=== PATIENT | male | born 1955 | race Caucasian/White ===

== ENCOUNTER 2022-06-06 18:34 | Observation (INO) ==
[2022-06-06] MEDS ORDERED: EPINEPHrine INJ 1 MG/ML AMP IM STA (18:40)
--- NOTE | 2022-06-06 18:43 | Emergency Department Note ---
Impression & Plan Angio-edema, Dyspnea ADMIT ED Provider Note HPI: The patient is a 66-year-old male who presents to the emergency department via EMS over concern for angioedema of the face. Patient states that approximately 2 hours prior to arrival he contacted EMS as he developed some swelling in the left side of his lips and mouth as well as his orbits inferiorly. Patient states he does have a history of one similar reaction that was to a certain type of plant. Patient did recently start burning wood at a wood-burning stove in his home. Patient was given intramuscular epinephrine, IV Solu-Medrol, IV Benadryl via EMS prior to arrival to the ED. Per the EMS provider, patient's angioedema improved by about 50% over the past hour since he received the intramuscular epinephrine. On arrival here to the ED the patient is stable on nasal cannula oxygen, there is appreciable angioedema that is mild to moderate in nature in the bilateral orbits as well as the left side of the lips/mouth. Patient states his work of breathing is greatly improved from previous. ROS: -HEENT: Angioedema *10 point review systems was conducted and is otherwise negative unless stated above *Outpatient medications and allergy history reviewed PE: General: Alert HEENT: Normocephalic, trachea midline, moderate angioedema noted in the inferior orbits bilaterally, there is also moderate angioedema noted of the lower lip and left upper lip, no angioedema of the tongue, posterior pharynx shows some very mild angioedema in the area of the right upper pharynx, uvula is midline, airway is otherwise largely patent Eyes: Extraocular eye movement is intact, no scleral erythema Pulmonary: Clear to auscultation bilaterally, no wheezing Cardio: Regular rate and rhythm GI: Abdomen is soft, nontender : No suprapubic tenderness MSK: No evidence of trauma or malformation of the extremities, no edema Skin: No evidence of rash Neuro: Alert, no focal deficits Psychiatric: Cooperative media monitor: - An order was placed for continuous cardiac monitoring - Patient was noted to be in sinus rhythm with a rate of 70 Interventions provided in ED: -Intramuscular epinephrine, IV Pepcid, cooled aerosol treatment Medical Decision Making: Patient presented to the emergency department with a chief complaint of facial swelling and a sensation of shortness of breath, per EMS he was given intramuscular epinephrine, IV Solu-Medrol, and IV Benadryl in the field. This did result in approximately 50% improvement in the angioedema of his face and mouth according to the EMS provider that was on scene. Patient is stable on nasal cannula oxygen on arrival, he was administered a c ooled aerosol treatment by respiratory therapy, he was given an additional dose of intramuscular epinephrine on my assessment as he still did have some angioedema and his last dose was approximately 1 hour prior to arrival. Patient was maintained on laboratory monitor, he was hypertensive but otherwise in no acute distress. On my reassessment following these interventions sometime later the patient is stable on room air however his angioedema is still present. He states that his work of breathing is improved. Given the patient's ongoing angioedema, he will be admitted to the medicine service for monitoring overnight. I did discuss the case with the on-call midlevel provider for the ICU tonight, Teo eMehan, and he will staffed the case with the on-call greenskeeper laborer. Patient will be admitted to the ICU following my discussion with the on-call hospitalist, Dr. Juan. Patient was i n agreement for admission and he was admitted in improved condition. * CRITICAL CARE TIME: ( 45 ) minutes -Stabilization of angioedema with shortness of breath requiring multiple doses of intramuscular epinephrine, time spent at the bedside, discussion with other physicians and healthcare providers regarding disposition, frequent reassessments for any worsening of potential angioedema/anaphylaxis and arrangement of admission to the ICU for observation and airway monitoring overnight. Diagnosis: 1. Facial and pharyngeal angioedema, acute 2. Shortness of breath, transient Disposition: Admission Justin Liang DO Emergency Medicine Past Med/Surg History Medical History (Updated 06/06/22 @ 23:11 by Justin Liang DO) Angioedema Asthma Elevated blood pressure reading Social History Smoking Status: Never smoker Preferred Language: Turkish Feels Safe at Home: Yes Allergies Allergies Allergy/AdvReac Type Severity Reaction Status Date / Time No Known Allergies Allergy Verified 06/06/22 19:44 Home Meds Home Medications Medication Instructions Recorded Confirmed Multiple Vitamins Suppliments 1 dose PO DAILY 06/06/22 06/06/22 albuterol sulfate 90 mcg/actuation 2 puff inhalation DIRECTED PRN 06/06/22 06/06/22 aerosol inhaler Shortness Of Breath Results & Data (ED) Vital Signs Vital Signs - 24 hr 06/06/22 18:34 06/06/22 18:34 06/06/22 19:10 Temperature 36.6 C Temperature Source Oral Pulse Rate 105 H Pulse Rate [Apical] 94 H Pulse Rate from SpO2 Sensor Respiratory Rate 16 18 Respiratory Effort / Characteristics Non-Labored Non-Labored Spontaneous Respiratory Depth Normal Normal Respiratory Pattern Regular Blood Pressure 210/118 H Blood Pressure [Left Arm] Blood Pressure Mean 148 Blood Pressure Mean [Left Arm] Pulse Oximetry 99 99 98 Oxygen Delivery Method Nasal Cannula Nasal Cannula Aerosol Mask Oxygen Flow Rate 5 5 5 Fraction of Inspired Oxygen 28 SaO2/FiO2 Ratio 350 Sepsis Recent Fever Within 48 Hours No Sepsis New/Unexplained Change in Mental Status N/A Sepsis Action Taken by Nursing No Action Required 06/06/22 19:30 06/06/22 20:01 06/06/22 20:30 Temperature Temperature Source Pulse Rate 88 Pulse Rate [Apical] 86 65 Pulse Rate from SpO2 Sensor 88 Respiratory Rate 16 16 17 Respiratory Effort / Characteristics Non-Labored Spontaneous Non-Labored Spontaneous Respiratory Depth Normal Normal Respiratory Pattern Blood Pressure 199/99 H Blood Pressure [Left Arm] 204/109 H 200/98 H Blood Pressure Mean 132 Blood Pressure Mean [Left Arm] 140 132 Pulse Oximetry 98 100 98 Oxygen Delivery Method Aerosol Mask Aerosol Mask Room Air Oxygen Flow Rate 5 5 Fraction of Inspired Oxygen 28 28 SaO2/FiO2 Ratio 350 357 Sepsis Recent Fever Within 48 Hours Sepsis New/Unexplained Change in Mental Status Sepsis Action Taken by Nursing 06/06/22 21:30 Temperature Temperature Source Pulse Rate 92 H Pulse Rate [Apical] Pulse Rate from SpO2 Sensor Respiratory Rate 24 Respiratory Effort / Characteristics Respiratory Depth Respiratory Pattern Blood Pressure 214/121 H Blood Pressure [Left Arm] Blood Pressure Mean 152 Blood Pressure Mean [Left Arm] Pulse Oximetry 97 Oxygen Delivery Method Room Air Oxygen Flow Rate Fraction of Inspired Oxygen SaO2/FiO2 Ratio Sepsis Recent Fever Within 48 Hours Sepsis New/Unexplained Change in Mental Status Sepsis Action Taken by Nursing Laboratory Data Result diagrams: 06/06/22 18:45 Lab Results 06/06/22 06/06/22 Range/Units 18:45 20:45 WBC 6.00 (4.8-10.8) K/ul RBC 5.13 (4.63-6.08) M/uL Hgb 15.8 (14.0-18.0) g/dl Hct 46.1 (40.1-51.0) % MCV 89.9 (80.0-100.0) fL MCH 30.8 (25.0-34.0) pg MCHC 34.3 (32.0-36.0) g/dL RDW Std Deviation 43.1 (36.4-46.3) fL RDW Coeff of Cindi 13.1 (11.5-14.5) % Plt Count 241 (130-400) K/uL MPV 9.1 L (9.4-12.4) fL Immature Gran % (Auto) 0.2 % Neut % (Auto) 71.9 % Lymph % (Auto) 13.2 % Candler % (Auto) 11.2 % Eos % (Auto) 2.5 % Baso % (Auto) 1.0 % Neut # (Auto) 4.32 (1.4-6.5) K/uL Lymph # (Auto) 0.79 L (1.2-3.4) K/uL Candler # (Auto) 0.67 (0.24-0.82) K/uL Eos # (Auto) 0.15 (0-0.50) K/uL Baso # (Auto) 0.06 (0-0.2) K/uL Immature Gran # (Auto) 0.01 (0.00-0.02) K/uL SARS-CoV-2, RNA, NAAT NEGATIVE (NEGATIVE) Administered Medications Discontinued Medications Epinephrine HCl (Epinephrine Inj 1 Mg/Ml Amp) 0.3 mg IM NOW STA Stop: 06/06/22 18:41 Last Admin: 06/06/22 19:01 Dose: 0.3 mg Documented By: DANNIE Famotidine (Pepcid 20mg Iv Push) 20 mg in 5 mls @ 2.5 mls/min IV NOW STA Stop: 06/06/22 20:48 Last Admin: 06/06/22 21:24 Dose: 2.5 mls/min Documented By: ZO Discharge Plan Visit Data Chief Complaint: Shortness of Breath/Dyspnea Stated Complaint: SOB ED Provider: Justin Liang Discharge Problem: Angio-edema, Dyspnea Patient Disposition: Admitted As Inpatient Discharge Instructions Interventions: ED Discharge Assessment Last Done: 06/06/22 22:15
[2022-06-06 18:57] LABS: Basophils # (auto) 0.06 K/uL (0-0.2); Eosinophils # (auto) 0.15 K/uL (0-0.50); Eosinophils % (auto) 2.5 %; Hematocrit (blood only) 46.1 % (40.1-51.0); Hemoglobin 15.8 g/dl (14.0-18.0); Immature Granulocytes # (auto) 0.01 K/uL (0.00-0.02); Immature Granulocytes % (auto) 0.2 %; Lymphocytes # (auto) 0.79 K/uL (1.2-3.4); Lymphocytes % (auto) 13.2 %; Mean Corpuscular Hemoglobin 30.8 pg (25.0-34.0); Mean Corpuscular Hgb Conc 34.3 g/dL (32.0-36.0); Mean Corpuscular Volume 89.9 fL (80.0-100.0); Mean Platelet Volume 9.1 fL (9.4-12.4); Monocytes # (auto) 0.67 K/uL (0.24-0.82); Monocytes % (auto) 11.2 %; Neutrophils # (auto) 4.32 K/uL (1.4-6.5); Neutrophils % (auto) 71.9 %; Platelet Count 241 K/uL (130-400); RDW Coefficient of Variation 13.1 % (11.5-14.5); RDW Standard Deviation 43.1 fL (36.4-46.3); Red Blood Count 5.13 M/uL (4.63-6.08)
[2022-06-06] MEDS ORDERED: FAMOTIDINE 20MG IV PUSH 20 MG/5 ML SYR IV STA (20:47)
--- NOTE | 2022-06-06 22:00 | Critical Care Consultation ---
Date of Consultation June 06, 2022 Assessment & Plan (1) Angioedema: (2) Elevated blood pressure reading: (3) Asthma: Plan Reason Critically Ill: [] Neuro - No acute needs CAM ICU: Negative NO focal deficits Cardiac - Elevated blood pressure reading, - patient does not follow with PCP and is not on any medications at home- he is currently asymptomatic and reports that frequently at home his BP is elevated to > 200 - Will defer treatment of this to medicine and PCP- unless symptomatic or organ dysfunction occurs - EKG on arrival for baseline - Will avoid B2 B1 blockers with his asthma history and until pulmonary wheezing and angioedema is improved - UA to evaluate protein level Respiratory - Angioedema, Asthma - For his Angioedema- symptom onset and response to therapy makes this most consistent with Histamine mediated angioedema - Patient should follow up with designer writer following admission - For completeness iveth and koley need for BP control- will send C1 inhibitor function/antigen, tryptase level, and C1q - Continue with steroid, ERAN, Benadryl PRN, Famotidine - IF his symptoms worsen and would need another dose of epinephrine or refractory would transition to IV epinephrine with rapid wean when symptoms improve as less residual effects on his elevated BP - Intubation as last resort - reported history of asthma but no PFTs to review - continue his ERAN can use nebulizer if symptoms return/worsen- follow GI - No acute needs RENAL/LYTES - NO acute needs - BMP in morning and as above UA to evaluate protien level - No acute needs ENDO - NO acute needs ICU hyperglycemia protocol HEME - NO acute needs ID - NO acute needs or evidence of infection or epiglottis noted on lateral soft tissue LINES/IV ACCESS - PIV Continue use of these lines Continue use of thes lines DVT PROPHYLAXIS SCDS, ambulation, DISPO: ICU overnight follow symptoms I have personally spent 35 minutes of critical care time in the direct management of this patient. This is a life/limb threatening event. This includes time spent evaluating patient, direct bedside care, chart review, placing orders, interpretation of diagnostic studies, discussion with consultants, benjie bae, and family members, as well as other required patient management activities. This time is exclusive of all separately billable procedures, and separate from and in addition to any other critical care service time. Thank you for allowing us to participate in the care of this patient. Please refer to my attending physician's documentation for any further recommendations. History of Present Illness Reason for Consultation: angioedema requiring 2 doses of IM epinepherine Requesting Physician: Drake Attending Physician: Drake History of Present Illness 66 YOM with no PCP, endorses only history of Asthma for which he has an albuterol inhaler at home. he notes that he is routinely hypertensive at home with BP greater than 200. He is not on any medications for this and endorses that he notes it increases with his albuterol inhaler. Patient comes to the hospital today after calling EMS for feeling his throat closing and tongue swelling. Patient states that this occurred this afternoon while he was lying on the couch. He reports that it started with a tightness feeling in his chest, this progressed to mouth and lip numbness and swelling that included his tongue and back of his throat, this progressed until EMS picked him up with reportedly facial/orbital edema as well. He used his abluterol inhaler approx 6 times and also tried some inahled essential peppermint tea oils, which he states normally helps. He reports that he ate a roast this afternoon with some seasonings as well as mushrooms, also reports fireplace/wood furnace at home which he has been burning wood in, but this is nothing out of the abnormal. Patient has remote hisotry of eating something back in 2019 with same symptoms and reports that at that time was some type of clam chowder. Overall the patient required 2 doses of IM epinephrine with rebound in between EMS dosing and EMD dosing. He received steroids and benadryl en route via EMS. Famotidine was added in EMD and soft tissue Xray was performed in EMD. Patient was evaluated in EMD with staff attending. 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 Patient will be observed in ICU for airway precautions and monitoring for return of symptoms. COVID: NEGATIVE FULL CODE Allergies Allergy/AdvReac Type Severity Reaction Status Date / Time No Known Allergies Allergy Verified 06/06/22 19:44 Home Medications Medication Instructions Recorded Confirmed Type Multiple Vitamins Suppliments 1 dose PO DAILY 06/06/22 06/06/22 History albuterol sulfate 90 mcg/actuation 2 puff inhalation DIRECTED PRN 06/06/22 06/06/22 History aerosol inhaler Shortness Of Breath Patient History Medical History (Updated 06/06/22 @ 22:11 by ELLEN Mendoza) Angioedema Asthma Elevated blood pressure reading Social History Smoking Status: Never smoker Preferred Language: Croatian Feels Safe at Home: Yes Review of Systems Review of Systems: REVIEW OF SYSTEMS: Constitutional: No fever, sweats or chills Eyes: (+) orbital swelling- resolved, No diplopia, no worsening or blurred vision ENT: (+) lip, tounge, throat swelling, normal hearing, no trouble swallowing Respiratory: (+) asthma, No cough, sputum, dyspnea at rest or on exertion Cardiovascular: No chest pain, tightness or palpitations Abdomen: No pain, nausea, vomiting, diarrhea or constipation Musculoskeletal: No joint pain, calf pain, swelling Neurologic: No weakness, numbness/tingling, or balance problems Psychiatric: No anxiety or depression Skin: No rash or itch Physical Exam Physical Exam: PHYSICAL EXAM: General: awake, alert, no apparent distress Head: Normocephalic, atraumatic ENT: PERRL, EOMI, no pharyngeal exudate, tongue swollen, tonsils and adenoids normal and uvula normal in appearance, no erythema or pustules, mucous membranes moist Neuro: AAO x 3, speech clear and appropriate, strength intact bilaterally 5/5, sensation intact and equal all extremities and dermatomes, no pronator drift Chest: equal rise and fall of the chest, no accessory muscle use, no heaves or thrills, Clear to auscultation, without egophany, on room air, Cardiac: Regular rate and rhythm, telemetry reviewed, skin warm dry, cap refill <3 seconds, peripheral pulses +2 no JVD, no murmur, trace bilateral lower extremity edema GI: NABS x 4 quadrants, soft, nontender to palpation, no rebound, guarding or tenderness : Spontaneously voiding, no pain, no CVA tenderness, Extremities: Normal inspection, no peripheral edema or erythema, calfs nontender to palpation Psych: Normal mood and affect Skin: no rash or erythema Results & Data Results & Data ([facility]) Vital Signs (Past 12 Hours) Vital Signs Temp Pulse Pulse Resp BP BP Pulse Ox 06/06/22 21:30 92 H 24 214/121 H 97 06/06/22 20:30 88 17 199/99 H 98 06/06/22 20:01 65 16 200/98 H 100 06/06/22 19:30 86 16 204/109 H 98 06/06/22 19:10 94 H 18 98 06/06/22 18:34 99 06/06/22 18:34 36.6 C 105 H 16 210/118 H 99 O2 Del Method O2 Flow Rate FiO2 06/06/22 21:30 Room Air 06/06/22 20:30 Room Air 06/06/22 20:01 Aerosol Mask 5 28 06/06/22 19:30 Aerosol Mask 5 28 06/06/22 19:10 Aerosol Mask 5 28 06/06/22 18:34 Nasal Cannula 5 06/06/22 18:34 Nasal Cannula 5 Laboratory Results Abnormal lab results 06/06/22 Range/Units 18:45 MPV 9.1 L (9.4-12.4) fL Lymph # (Auto) 0.79 L (1.2-3.4) K/uL Medications Administered Home Medications Multiple Vitamins Suppliments 1 dose PO DAILY 06/06/22 [History Confirmed 06/06/22] albuterol sulfate 90 mcg/actuation aerosol inhaler 2 puff inhalation DIRECTED PRN Shortness Of Breath 06/06/22 [History Confirmed 06/06/22] Discontinued Medications Epinephrine HCl (Epinephrine Inj 1 Mg/Ml Amp) 0.3 mg IM NOW STA Stop: 06/06/22 18:41 Last Admin: 06/06/22 19:01 Dose: 0.3 mg Documented By: DANNIE Famotidine (Pepcid 20mg Iv Push) 20 mg in 5 mls @ 2.5 mls/min IV NOW STA Stop: 06/06/22 20:48 Last Admin: 06/06/22 21:24 Dose: 2.5 mls/min Documented By: ZO ECG Additional Comments: pending on admission Coding Level of Care Code Critical Care 1st 30-74 mins Diagnoses Angioedema T78.3XXA Elevated blood pressure reading R03.0 Asthma J45.909
[2022-06-06] MEDS ORDERED: diphenhydrAMINE 50 MG/ML VIAL IV PRN (22:52)
[2022-06-06] MEDS ORDERED: ALBUTEROL HFA 8 GM INHALER INH PRN (22:52)
[2022-06-06] MEDS ORDERED: ALBUTEROL 0.083% NEBU SOLN 3 ML VIAL NEB PRN (22:52)
--- NOTE | 2022-06-06 23:11 | History and Physical Report ---
DATE OF ADMISSION: 06/06/2022. CHIEF COMPLAINT: Angioedema, shortness of breath. HISTORY OF PRESENT ILLNESS: A 66-year-old male with past medical history significant for asthma, uses inhaler as needed, history of hypertension, currently using herbal medicines, does not go to doctors often, presents with allergic symptoms, angioedema and shortness of breath. The patient says around 4:00 to 5:00 p.m., he felt short of breath and he took his inhaler, then he felt swelling of his lips and also felt like his throat is closing, felt short of breath and called 911. He was given IM epinephrine, IV Solu-Medrol, and IV Benadryl by EMS and seems improved by 50% In the ER, the patient was stable on nasal cannula oxygen and there was still [id number] swelling in his orbits and left side of his lips and mouth. He was given another dose of epinephrine and also Pepcid. Currently, resting comfortably, saturating okay on room air. Blood pressure high, 214/121. The patient still feels slight swelling in his throat but not feeling short of breath, but still feels some swelling in his lips and throat and says has mild swelling on the right side of face. The patient was seen in the ER in 07/2019 complaining of shortness of breath. At that time when it happened, he began wheezing after eating food in the evening. The seems to had dairy allergy and was treated in the ER and discharged. The patient says also in his 40s, he was allergic to grass and some kind of trees, these are not in [place]. In the last few days, he was hunting. It also seems that he is burning wood stove in his home recently. The patient currently denies any headache. No blurred visions, no earache, no runny nose, no sore throat, no cough, no fevers, no chest pain. Currently, no shortness of breath, no nausea, no vomiting, no abdominal pain. Normal bowel and bladder movements. No rash, no swelling in the legs seen. ALLERGIES: No known drug allergies. PAST MEDICAL HISTORY: As mentioned above. PAST SURGICAL HISTORY: The patient had hernia surgery and vasectomy. MEDICATIONS: Albuterol p.r.n., multivitamins. FAMILY HISTORY: Significant for father had stroke and hypertension; mother had stroke and hypertension. SOCIAL HISTORY: Denies any smoking, no alcohol, no drug use. REVIEW OF SYSTEMS: As per HPI. Rest of the review of systems is negative. PHYSICAL EXAMINATION: GENERAL: The patient is of moderate build, not in acute distress. VITAL SIGNS: Temperature 36.6, pulse 92, respiratory rate 24, blood pressure 214/121, oxygen 97% on room air. HEENT: Pupils equal, round and reactive to light. Mild right facial swelling. Minimal lip swelling, minimal uvula swelling. NECK: No JVD. No neck masses. CARDIOVASCULAR: S1 and S2 heard. Regular rate and rhythm. No murmur, no gallop. RESPIRATORY SYSTEM: Normal AP diameter. No accessory muscle use. No wheezing, no crackles. ABDOMEN: Soft, bowel sounds present, nontender, no distention. CENTRAL NERVOUS SYSTEM: Cranial nerves II-XII grossly intact, nonfocal. EXTREMITIES: No edema, no erythema. LABORATORY DATA: WBC 6, hemoglobin 15.8, hematocrit 46.1, platelets 241. SARS-CoV-2 rapid test negative. Soft tissue neck x-ray results are pending. ASSESSMENT AND PLAN: This 66-year-old male presents with angioedema and shortness of breath. 1. Angioedema, shortness of breath, swelling of the lips ,uvula and right facial swelling. Received a dopse of IM epinephrine, Solu-Medrol and Benadryl by the emergency medical services, and in the Emergency Room, he received another shot of IM epinephrine and Pepcid. Symptoms seem to have much improved. We are going to observe in the intensive care unit. We will give a dose of Claritin. Continue with IV Pepcid 20 b.i.d., IV Benadryl p.r.n. I will start with prednisone 60 mg daily from the morning. Closely monitor. Needs close followup with allergy/immunology. 2. Hypertensive urgency. The patient says his blood pressure when he checked at home, systolic blood pressures sometimes 210, sometimes 190, 170. He is taking herbal medications. The patient may need blood pressure medications on discharge and needs a close followup with primary care physician. We will monitor in the hospital. 3. Deep venous thrombosis prophylaxis. Sequential compression devices for now. DISPOSITION: Closely monitor in the ICU. Level 1, full code. Expect to discharge home and follow with family doctor and allergy and immunology. Job ID: [id number] [facility]
[2022-06-06] MEDS ORDERED: CETIRIZINE HCL 10 MG TABLET PO ONE (23:15)
[2022-06-06] MEDS: SODIUM CHLORIDE 0.9% 1000ML 1,000 ML IV SCH (23:21)
[2022-06-06] MEDS: FAMOTIDINE 20 MG in SYRINGE 3 ML IV SCH (23:22)
[2022-06-06 23:32] LABS: BUN Creatinine Ratio 15.2 (10-20); Calcium 8.9 mg/dl (8.5-10.1); Creatinine Clr Calc Pharmacy 53.3 ml/min; Est GFR (African American) 64.7 ml/min; Est GFR (Non-African American) 55.8 ml/min; Potassium 3.5 mmol/L (3.5-5.1)
[2022-06-07 05:17] LABS: Hematocrit (blood only) 42.4 % (40.1-51.0); Hemoglobin 14.2 g/dl (14.0-18.0); Mean Corpuscular Hemoglobin 30.3 pg (25.0-34.0); Mean Corpuscular Hgb Conc 33.5 g/dL (32.0-36.0); Mean Corpuscular Volume 90.6 fL (80.0-100.0); Mean Platelet Volume 9.6 fL (9.4-12.4); Platelet Count 243 K/uL (130-400); RDW Coefficient of Variation 13.2 % (11.5-14.5); RDW Standard Deviation 43.6 fL (36.4-46.3); Red Blood Count 4.68 M/uL (4.63-6.08); White Blood Count 6.24 K/ul (4.8-10.8)
[2022-06-07 05:56] LABS: Albumin Level 4.3 gm/dl (3.4-5.0); Bilirubin Direct 0.1 mg/dl (0-0.2); Bilirubin,Total 0.4 mg/dl (0.2-1.0); Magnesium 2.1 mg/dl (1.7-2.4); Total Protein 6.5 gm/dl (6.0-8.3)
[2022-06-07 05:59] LABS: Basophils # (auto) 0.01 K/uL (0-0.2); Basophils % (auto) 0.2 %; Immature Granulocytes # (auto) 0.01 K/uL (0.00-0.02); Immature Granulocytes % (auto) 0.2 %; Lymphocytes # (auto) 0.24 K/uL (1.2-3.4); Lymphocytes % (auto) 3.8 %; Monocytes # (auto) 0.15 K/uL (0.24-0.82); Monocytes % (auto) 2.4 %; Neutrophils # (auto) 5.83 K/uL (1.4-6.5); Neutrophils % (auto) 93.4 %
[2022-06-07 06:52] LABS: Appearance Urine Clear (Clear); Bacteria Urine Automated Negative (Negative); Bilirubin Urine Negative (Negative); Blood Urine Negative (Negative); Cast Urine Automated 0 /lpf (0-5); Color Urine Yellow; Epithelial Cell Urine Auto 0-5 /lpf (0-5); Glucose Urine UA Negative (Negative); Ketones Urine Trace (Negative); Leukocyte Esterase Urine Negative (Negative); Nitrite Urine Negative (Negative); Protein Urine 1+ (Negative); RBC Urine Automated 0-4 /hpf (0-4); Specific Gravity Urine 1.028 (1.000-1.030); Urobilinogen Urine Negative (Negative); pH Urine 5.5 (4.5-7.5)
--- NOTE | 2022-06-07 08:16 | XRay Report ---
XR soft tissue neck CLINICAL HISTORY: Neck edema. COMPARISON STUDY: None. FINDINGS: The contours of the hypopharynx are within normal limits. The prevertebral soft tissues and epiglottis are normal in thickness. No radiopaque foreign bodies. Moderate degenerative disc disease at C6-C7. The trachea is midline and patent. The lung apices are clear. No radiopaque foreign bodies . IMPRESSION: No significant abnormality within the neck by conventional radiographic technique. ACT 112: Negative or not required by law. Electronically signed by: Chencho Medina M.D. 06/07/2022 8:14 AM
--- NOTE | 2022-06-07 08:59 | Electrocardiogram Report ---
Test Reason : Blood Pressure : / mmHG Vent. Rate : 062 BPM Atrial Rate : 062 BPM P-R Int : 154 ms QRS Dur : 080 ms QT Int : 406 ms P-R-T Axes : 059 012 029 degrees QTc Int : 412 ms Normal sinus rhythm Diffuse Minor Nonspecific T wave abnormality Abnormal ECG When compared with ECG of 22-AUG-2019 19:25, Vent. rate has decreased BY 39 BPM Nonspecific T wave abnormality now evident in Lateral leads Confirmed by Rajendra Shin ([id number]) on 06/07/2022 8:59:16 AM Referred By: REFERRED SELF Confirmed By:Rajendra Shin
[2022-06-07] MEDS: ICU Protocol for HYPERglycemia SCH ×2 (09:04→11:21)
[2022-06-07] MEDS: FAMOTIDINE 20 MG in SYRINGE 3 ML IV SCH (09:04)
[2022-06-07] MEDS: predniSONE 20 MG TAB PO SCH (09:04)
[2022-06-07] MEDS: SODIUM CHLORIDE 0.9% 1000ML 1,000 ML IV SCH (09:05)
--- NOTE | 2022-06-07 09:30 | Critical Care Progress Note ---
Date of Service June 07, 2022 Assessment & Plan (1) Angio-edema: Plan: Reason Critically Ill: 66yo MAle with PMH HTN admitted for angioedema Neuro - No acute needs CAM ICU: Negative NO focal deficits Cardiac -Hypertension - patient does not follow with PCP and is not on any medications at home- he is currently asymptomatic and reports that frequently at home his BP is elevated to > 200 - Will defer treatment of this to medicine and PCP- unless symptomatic or organ dysfunction occurs - EKG on arrival for baseline - Will avoid B2 B1 blockers with his asthma history - UA +1 protein - will start patient on 5mg amlodipine daily Respiratory - Angioedema - For his Angioedema- symptom onset and response to therapy makes this most consistent with Histamine mediated angioedema - Patient should follow up with public health nutritionist following admission - C1 inhibitor function/antigen, tryptase level, and C1q pending - Continue with steroid, ERAN, Benadryl PRN, Famotidine - last epinephrine administration >12hr ago Asthma - reported history of asthma but no PFTs to review - continue his ERAN can use nebulizer if symptoms return/worsen- follow GI - No acute needs RENAL/LYTES - NO acute needs - No acute needs ENDO - NO acute needs ICU hyperglycemia protocol HEME - NO acute needs ID - NO acute needs or evidence of infection or epiglottis noted on lateral soft tissue LINES/IV ACCESS - PIV Continue use of these lines Continue use of thes lines DVT PROPHYLAXIS SCDS, ambulation, DISPO: ICU overnight follow symptoms Thank you for allowing us to participate in the care of this patient. Please refer to my attending physician's documentation for any further recommendations. Patient may be downgraded from ICU at this time. (2) Dyspnea: (3) Angioedema: (4) Elevated blood pressure reading: (5) Asthma: Admission and Anticipated Discharge Date Admission Date: June 06, 2022 Supervising Physician Co-Signing Physician Notes Dr. Ibrahim was resident physician during care of patient. I separately evaluated patient for jiménez portions of the history and the exam. I was present during the critical portion of medical decision making, and I discussed the case with the resident. I generally agree with the findings and plan. Histamine mediated angioedema. Last administered epinephrine subcu greater than 12 hours ago. Will continue with Pepcid Benadryl and prednisone for today. Persistently elevated blood pressures, this is chronic no need for emergent/urgent intervention given no evidence of end organ damage at this time. We will start 5 mg amlodipine given multiple allergies questionable angioedema. Stable for downgrade out of ICU. Subjective 66yo Male seen at bedside, calm comfortable cooperative. Denies any SOB today, swelling in mouth and lips much improved mild swelling in back of throat, puffiness of right lip and eye. He states he is unable to determine what may have triggered his angioedema, has new house new heater new coffee, only medication is inhaler which he uses frequently, likes using vitamins and essential oils to treat his HTN without great success. Review of Systems Review of Systems: Negative fever chills Negative headache dizziness Negative chest pain palpitations SOB Negative nausea vomitting diarrhea constipation Negative numbness tingling rash swelling Physical Exam Constitutional: WD/WN, vitals as above Eyes: PERRL, conjunctivae normal, anicteric sclerae ENMT: external ear and nose normal, oropharynx normal Neck: trachea midline, no thyromegaly Respiratory: normal respiratory effort, lungs clear to auscultation Cardiovascular: Rate/Rhythm: regular rate and regular rhythm Gastrointestinal (Abdomen): Inspection/Auscultation: abdomen normal to inspection Percussion/Palpation: abdomen soft; abdomen nontender Skin: no rashes, warm and dry Results & Data Results & [facility] ([facility]) Vital Signs (Past 12 Hours) Vital Signs Temp Pulse Pulse Resp BP BP Pulse Ox 06/07/22 05:30 60 14 95 06/07/22 05:01 170/105 H 06/07/22 05:01 93 H 15 95 06/07/22 05:00 64 22 94 06/07/22 04:30 36.6 C 72 19 95 06/07/22 04:00 60 12 94 06/07/22 04:00 137/84 06/07/22 03:30 62 16 96 06/07/22 03:00 63 14 94 06/07/22 03:00 165/89 H 06/07/22 02:30 64 28 H 95 06/07/22 02:00 66 16 96 06/07/22 01:30 59 L 19 94 06/07/22 01:00 79 15 95 06/07/22 01:00 146/79 H 06/07/22 00:30 59 L 16 95 06/07/22 00:00 61 14 95 06/07/22 00:00 150/84 H 06/06/22 23:30 36.7 C 60 25 H 165/96 H 96 06/06/22 23:00 65 17 96 06/06/22 22:42 75 19 95 06/06/22 22:52 77 06/06/22 23:01 36.7 C 68 16 166/81 H 96 06/06/22 22:00 69 18 193/101 H 94 O2 Del Method 06/07/22 05:30 06/07/22 05:01 06/07/22 05:01 06/07/22 05:00 06/07/22 04:30 06/07/22 04:00 06/07/22 04:00 06/07/22 03:30 06/07/22 03:00 06/07/22 03:00 06/07/22 02:30 06/07/22 02:00 06/07/22 01:30 06/07/22 01:00 06/07/22 01:00 06/07/22 00:30 06/07/22 00:00 06/07/22 00:00 06/06/22 23:30 Room Air 06/06/22 23:00 06/06/22 22:42 06/06/22 22:52 06/06/22 23:01 Room Air 06/06/22 22:00 Room Air Resident Activity Tracking Resident Involvement: Resident Care Provided Care Provided: Adult Hospital Medicine (1) Angio-edema Encounter type: initial encounter Qualified Code(s): T78.3XXA - Angioneurotic edema, initial encounter
[2022-06-07] MEDS: amLODIPine BESYLATE 5 MG TAB PO SCH ×2 (11:21→13:56)
--- NOTE | 2022-06-07 11:31 | Hospitalist Progress Note ---
Date of Service June 07, 2022 Assessment & Plan (1) Angio-edema: Plan: Patient is a 66 yr male who presents with angioedema and shortness of breath. Angioedema Unclear etiology --Neck X ray:No significant abnormality within the neck by conventional radiographic technique. --C1 inhibitor function/antigen, tryptase level, and C1q pending -- Received epinephrine, Zyrtec Continue prednisone, famotidine, Benadryl PRN Advance diet as tolerated Visit maintenance person help Downgrade out of ICU Needs follow-up with allergy/Immunology as outpatient Hypertensive urgency Uses natural remedies for blood pressure control as per patient Reluctant to be started on any antihypertensives Explained the risks and complications involved with uncontrolled blood pressure Needs close follow-up with PCP upon discharge Monitor BP Asthma Continue inhalers as needed DVT Px: SCDs for now CODE STATUS Full Code Admission and Anticipated Discharge Date Admission Date: June 06, 2022 Subjective Patient is seen and examined at bedside Facial, lip, throat swelling much improved Shortness of breath resolved Denies any dysphagia, chest pain, dizziness, neck, abdominal pain Plan to be downgraded from ICU today Review of Systems Review of Systems: All systems reviewed & are unremarkable except as noted in Subjective Physical Exam Physical Exam: Physical Exam: Vitals signs as noted above General Appearance:Moderately built and nourished, no apparent distress Head: normocephalic, Atraumatic Eyes: normal inspection, EOMI Neck: supple, Trachea midline Respiratory/Chest: Normal breath sounds, CTA, No accessory muscle use Cardiovascular: S1, S2, No murmur Abdomen/GI:Soft, Non tender, Bowel sounds present Extremities/Musculoskeletal:normal inspection, no edema Neurologic/Psych:AAOX3, grossly no focal neurological deficits Skin: normal color, warm Results & Data Results & Data ([facility]) Vital Signs (Past 12 Hours) Vital Signs Temp Pulse Resp BP Pulse Ox O2 Del Method 06/07/22 05:30 60 14 95 06/07/22 05:01 170/105 H 06/07/22 05:01 93 H 15 95 06/07/22 05:00 64 22 94 06/07/22 04:30 36.6 C 72 19 95 06/07/22 04:00 60 12 94 06/07/22 04:00 137/84 06/07/22 03:30 62 16 96 06/07/22 03:00 63 14 94 06/07/22 03:00 165/89 H 06/07/22 02:30 64 28 H 95 06/07/22 02:00 66 16 96 06/07/22 01:30 59 L 19 94 06/07/22 01:00 79 15 95 06/07/22 01:00 146/79 H 06/07/22 00:30 59 L 16 95 06/07/22 00:00 61 14 95 06/07/22 00:00 150/84 H 06/06/22 23:30 36.7 C 60 25 H 165/96 H 96 Room Air Laboratory Results Short CBC 06/06/22 06/07/22 Range/Units 18:45 04:32 WBC 6.00 6.24 (4.8-10.8) K/ul Hgb 15.8 14.2 (14.0-18.0) g/dl Hct 46.1 42.4 (40.1-51.0) % Plt Count 241 243 (130-400) K/uL BMP 06/06/22 18:47 Sodium 139 Potassium 3.5 Chloride 103 Carbon Dioxide 29 BUN 20 Creatinine 1.32 Glucose 174 H Calcium 8.9 Liver Function 06/07/22 Range/Units 04:32 Total Bilirubin 0.4 (0.2-1.0) mg/dl Direct Bilirubin 0.1 (0-0.2) mg/dl AST 19 (13-39) U/L ALT 25 (7-52) U/L Alkaline Phosphatase 64 (34-104) U/L Albumin 4.3 (3.4-5.0) gm/dl Urine 06/07/22 Range/Units 04:45 Urine Color Yellow Urine Appearance Clear (Clear) Urine pH 5.5 (4.5-7.5) Ur Specific [place] 1.028 (1.000-1.030) Urine Protein 1+ H (Negative) Urine Glucose (UA) Negative (Negative) (1) Angio-edema Encounter type: initial encounter Qualified Code(s): T78.3XXA - Angioneurotic edema, initial encounter
[2022-06-07] MEDS: hydrALAZINE 10 MG TAB PO PRN ×2 (16:35→22:30)
--- NOTE | 2022-06-07 16:53 | CT Scan Report ---
CT head/brain wo con CLINICAL HISTORY: 66 years-old Male with Hypertensive Urgency. Acute headache with hypertension TECHNIQUE: Multiple axial CT images of the head were obtained without contrast. A dose lowering tech nique was utilized adhering to the principles of ALARA. CT DOSE: 906.34 mGycm COMPARISON: None. FINDINGS: No acute intracranial hemorrhage, midline shift, intracranial mass, hydrocephalus, territorial ischem ia or abnormal extra-axial collection. Cerebral vascular calcifications. The calvarium is intact. Mild mucosal thickening of the ethmoid air cells. Hypoplastic frontal sinus es. The mastoid air cells are clear. Hyperdense foci noted within the right parietal scalp near the a pex suggestive of calcification versus foreign body. No associated inflammatory changes. IMPRESSION: No acute intracranial abnormality. ACT 112: Negative or not required by law. The above report was generated using voice recognition software. It may contain grammatical, syntax o r spelling errors. Electronically signed by: Gallo Alvarez M.D. 06/07/2022 4:52 PM
[2022-06-07] MEDS: FAMOTIDINE 20 MG TAB PO SCH (20:51)
[2022-06-07] MEDS ORDERED: hydrALAZINE HCL 20 MG/ML VIAL IV ONE (23:51)
[2022-06-08 08:20] LABS: Basophils # (auto) 0.08 K/uL (0-0.2); Basophils % (auto) 0.8 %; Eosinophils # (auto) 0.07 K/uL (0-0.50); Eosinophils % (auto) 0.7 %; Hemoglobin 14.6 g/dl (14.0-18.0); Immature Granulocytes # (auto) 0.03 K/uL (0.00-0.02); Immature Granulocytes % (auto) 0.3 %; Lymphocytes # (auto) 1.49 K/uL (1.2-3.4); Lymphocytes % (auto) 15.7 %; Mean Corpuscular Hemoglobin 30.4 pg (25.0-34.0); Mean Corpuscular Volume 89.6 fL (80.0-100.0); Mean Platelet Volume 9.4 fL (9.4-12.4); Monocytes % (auto) 8.4 %; Neutrophils % (auto) 74.1 %; Platelet Count 251 K/uL (130-400); RDW Coefficient of Variation 13.5 % (11.5-14.5); RDW Standard Deviation 44.5 fL (36.4-46.3); White Blood Count 9.47 K/ul (4.8-10.8)
[2022-06-08 08:42] LABS: Estimated Average Glucose 126 mg/dl
[2022-06-08 08:53] LABS: Albumin Level 4.3 gm/dl (3.4-5.0); BUN Creatinine Ratio 23.4 (10-20); Bilirubin,Total 0.4 mg/dl (0.2-1.0); Calcium 8.6 mg/dl (8.5-10.1); Creatinine Clr Calc Pharmacy 74.8 ml/min; Est GFR (African American) 97.5 ml/min; Est GFR (Non-African American) 84.2 ml/min; Magnesium 2.6 mg/dl (1.7-2.4); Potassium 4.1 mmol/L (3.5-5.1); Total Protein 6.8 gm/dl (6.0-8.3)
[2022-06-08] MEDS: FAMOTIDINE 20 MG TAB PO SCH (08:53)
[2022-06-08] MEDS: predniSONE 20 MG TAB PO SCH (08:54)
[2022-06-08] MEDS: amLODIPine BESYLATE 5 MG TAB PO SCH (08:54)
[2022-06-08] MEDS ORDERED: LOSARTAN POTASSIUM 25 MG TAB PO SCH (09:00)
--- NOTE | 2022-06-08 11:34 | Hospitalist Progress Note ---
Date of Service June 08, 2022 Assessment & Plan (1) Angio-edema: Plan: Patient is a 66 yr male who presents with angioedema and shortness of breath. Angioedema Unclear etiology --Neck X ray:No significant abnormality within the neck by conventional radiographic technique. --C1 inhibitor function/antigen, tryptase level, and C1q pending -- Received epinephrine, Zyrtec Continue prednisone, famotidine, Benadryl PRN Appreciate [employer] Attendant help Tolerated regular diet Advised to follow-up with allergy/Immunology as outpatient Hypertensive urgency Uses natural remedies for blood pressure control as per patient Very reluctant to be started on any antihypertensives Explained the risks and complications involved with uncontrolled blood pressure Monitor BP Added Amlodipine, Losartan--Only took Amlodipine Advised to follow-up with PCP for further recommendations Asthma Continue inhalers as needed DVT Px: SCDs for now CODE STATUS Full Code Admission and Anticipated Discharge Date Admission Date: June 06, 2022 Subjective Patient is seen and examined at bedside Eager to get discharged Offers no complaints today Facial swelling resolved Denies any chest pain, dysphagia, chest pain, dizziness, neck, abdominal pain Review of Systems Review of Systems: All systems reviewed & are unremarkable except as noted in Subjective Physical Exam Physical Exam: Physical Exam: Vitals signs as noted above General Appearance:Moderately built and nourished, no apparent distress Head: normocephalic, Atraumatic Eyes: normal inspection, EOMI Neck: supple, Trachea midline Respiratory/Chest: Normal breath sounds, CTA, No accessory muscle use Cardiovascular: S1, S2, No murmur Abdomen/GI:Soft, Non tender, Bowel sounds present Extremities/Musculoskeletal:normal inspection, no edema Neurologic/Psych:AAOX3, grossly no focal neurological deficits Skin: normal color, warm Results & Data Results & [facility] ([facility]) Vital Signs (Past 12 Hours) Vital Signs Temp Pulse Resp BP Pulse Ox 06/08/22 11:18 36.6 C 64 16 173/89 H 95 06/08/22 09:20 36.5 C 82 18 207/83 H 95 06/08/22 07:30 60 06/08/22 04:00 36.6 C 64 18 155/86 H 96 06/08/22 01:10 83 157/82 H 06/07/22 23:33 36.5 C 60 16 189/94 H 96 Laboratory Results Short CBC 06/08/22 Range/Units 07:58 WBC 9.47 (4.8-10.8) K/ul Hgb 14.6 (14.0-18.0) g/dl Hct 43.0 (40.1-51.0) % Plt Count 251 (130-400) K/uL BMP 06/08/22 07:58 Sodium 139 Potassium 4.1 Chloride 107 Carbon Dioxide 28 BUN 22 Creatinine 0.94 D Glucose 100 H Calcium 8.6 Liver Function 06/08/22 Range/Units 07:58 Total Bilirubin 0.4 (0.2-1.0) mg/dl Direct Bilirubin 0.0 (0-0.2) mg/dl AST 17 (13-39) U/L ALT 23 (7-52) U/L Alkaline Phosphatase 60 (34-104) U/L Albumin 4.3 (3.4-5.0) gm/dl (1) Angio-edema Encounter type: initial encounter Qualified Code(s): T78.3XXA - Angioneurotic edema, initial encounter
--- NOTE | 2022-06-08 11:54 | Discharge Summary ---
Date of Service June 08, 2022 Admission HPI Per Admitting Provider CHIEF COMPLAINT: Angioedema, shortness of breath. HISTORY OF PRESENT ILLNESS: A 66-year-old male with past medical history significant for asthma, uses inhaler as needed, history of hypertension, currently using herbal medicines, does not go to doctors often, presents with allergic symptoms, angioedema and shortness of breath. The patient says around 4:00 to 5:00 p.m., he felt short of breath and he took his inhaler, then he felt swelling of his lips and also felt like his throat is closing, felt short of breath and called 911. He was given IM epinephrine, IV Solu-Medrol, and IV Benadryl by EMS and seems improved by 50% In the ER, the patient was stable on nasal cannula oxygen and there was still [id number] swelling in his orbits and left side of his lips and mouth. He was given another dose of epinephrine and also Pepcid. Currently, resting comfortably, saturating okay on room air. Blood pressure high, 214/121. The patient still feels slight swelling in his throat but not feeling short of breath, but still feels some swelling in his lips and throat and says has mild swelling on the right side of face. The patient was seen in the ER in 07/2019 complaining of shortness of breath. At that time when it happened, he began wheezing after eating food in the evening. The seems to had dairy allergy and was treated in the ER and discharged. The patient says also in his 40s, he was allergic to grass and some kind of trees, these are not in [place]. In the last few days, he was hunting. It also seems that he is burning wood stove in his home recently. The patient currently denies any headache. No blurred visions, no earache, no runny nose, no sore throat, no cough, no fevers, no chest pain. Currently, no shortness of breath, no nausea, no vomiting, no abdominal pain. Normal bowel and bladder movements. No rash, no swelling in the legs seen. Admission Exam Per Admitting Provider PHYSICAL EXAMINATION: GENERAL: The patient is of moderate build, not in acute distress. VITAL SIGNS: Temperature 36.6, pulse 92, respiratory rate 24, blood pressure 214/121, oxygen 97% on room air. HEENT: Pupils equal, round and reactive to light. Mild right facial swelling. Minimal lip swelling, minimal uvula swelling. NECK: No JVD. No neck masses. CARDIOVASCULAR: S1 and S2 heard. Regular rate and rhythm. No murmur, no gallop. RESPIRATORY SYSTEM: Normal AP diameter. No accessory muscle use. No wheezing, no crackles. ABDOMEN: Soft, bowel sounds present, nontender, no distention. CENTRAL NERVOUS SYSTEM: Cranial nerves II-XII grossly intact, nonfocal. EXTREMITIES: No edema, no erythema. Principal Diagnosis Angioedema Hypertensive urgency Discharge Data Allergies Allergy/AdvReac Type Severity Reaction Status Date / Time No Known Allergies Allergy Verified 06/06/22 19:44 Consultations 06/06/22 20:53 ED Decision to Admit Stat 06/06/22 22:52 Consult [employer] Routine Procedures Performed Laboratory Results WBC 9.47 K/ul (4.8-10.8) 06/08/22 07:58 RBC 4.80 M/uL (4.63-6.08) 06/08/22 07:58 Hgb 14.6 g/dl (14.0-18.0) 06/08/22 07:58 Hct 43.0 % (40.1-51.0) 06/08/22 07:58 MCV 89.6 fL (80.0-100.0) 06/08/22 07:58 MCH 30.4 pg (25.0-34.0) 06/08/22 07:58 MCHC 34.0 g/dL (32.0-36.0) 06/08/22 07:58 RDW Std Deviation 44.5 fL (36.4-46.3) 06/08/22 07:58 RDW Coeff of Cindi 13.5 % (11.5-14.5) 06/08/22 07:58 Plt Count 251 K/uL (130-400) 06/08/22 07:58 MPV 9.4 fL (9.4-12.4) 06/08/22 07:58 Immature Gran % (Auto) 0.3 % 06/08/22 07:58 Neut % (Auto) 74.1 % 06/08/22 07:58 Lymph % (Auto) 15.7 % 06/08/22 07:58 [place] % (Auto) 8.4 % 06/08/22 07:58 Eos % (Auto) 0.7 % 06/08/22 07:58 Baso % (Auto) 0.8 % 06/08/22 07:58 Neut # (Auto) 7.00 K/uL (1.4-6.5) H 06/08/22 07:58 Lymph # (Auto) 1.49 K/uL (1.2-3.4) 06/08/22 07:58 [place] # (Auto) 0.80 K/uL (0.24-0.82) 06/08/22 07:58 Eos # (Auto) 0.07 K/uL (0-0.50) 06/08/22 07:58 Baso # (Auto) 0.08 K/uL (0-0.2) 06/08/22 07:58 Immature Gran # (Auto) 0.03 K/uL (0.00-0.02) H 06/08/22 07:58 Sodium 139 mmol/L (136-145) 06/08/22 07:58 Potassium 4.1 mmol/L (3.5-5.1) 06/08/22 07:58 Chloride 107 mmol/L (98-107) 06/08/22 07:58 Carbon Dioxide 28 mmol/L (21-32) 06/08/22 07:58 Anion Gap 4 (3-11) 06/08/22 07:58 BUN 22 mg/dl (6-23) 06/08/22 07:58 Creatinine 0.94 mg/dl (0.6-1.4) D 06/08/22 07:58 Est Cr Clr Drug Dosing 74.8 ml/min 06/08/22 07:58 Est GFR ( Amer) 97.5 ml/min 06/08/22 07:58 Est GFR (Non-Af Amer) 84.2 ml/min 06/08/22 07:58 BUN/Creatinine Ratio 23.4 (10-20) H 06/08/22 07:58 Glucose 100 mg/dl (70-99(Fasting)) H 06/08/22 07:58 POC Glucose 116 mg/dl (70-99) H 06/07/22 08:58 Estimat Average Glucose 126 mg/dl 06/08/22 07:58 Hemoglobin A1c 6.0 % (4.5-5.6) H 06/08/22 07:58 Calcium 8.6 mg/dl (8.5-10.1) 06/08/22 07:58 Magnesium 2.6 mg/dl (1.7-2.4) H 06/08/22 07:58 Total Bilirubin 0.4 mg/dl (0.2-1.0) 06/08/22 07:58 Direct Bilirubin 0.0 mg/dl (0-0.2) 06/08/22 07:58 AST 17 U/L (13-39) 06/08/22 07:58 ALT 23 U/L (7-52) 06/08/22 07:58 Alkaline Phosphatase 60 U/L (34-104) 06/08/22 07:58 Total Protein 6.8 gm/dl (6.0-8.3) 06/08/22 07:58 Albumin 4.3 gm/dl (3.4-5.0) 06/08/22 07:58 Urine Color Yellow 06/07/22 04:45 Urine Appearance Clear (Clear) 06/07/22 04:45 Urine pH 5.5 (4.5-7.5) 06/07/22 04:45 Ur Specific [place] 1.028 (1.000-1.030) 06/07/22 04:45 Urine Protein 1+ (Negative) H 06/07/22 04:45 Urine Glucose (UA) Negative (Negative) 06/07/22 04:45 Urine Ketones Trace (Negative) H 06/07/22 04:45 Urine Blood Negative (Negative) 06/07/22 04:45 Urine Nitrite Negative (Negative) 06/07/22 04:45 Urine Bilirubin Negative (Negative) 06/07/22 04:45 Urine Urobilinogen Negative (Negative) 06/07/22 04:45 Ur Leukocyte Esterase Negative (Negative) 06/07/22 04:45 Urine WBC (Auto) 1-5 /hpf (0-5) 06/07/22 04:45 Urine RBC (Auto) 0-4 /hpf (0-4) 06/07/22 04:45 U Hyaline Cast (Auto) 0 /lpf (0-5) 06/07/22 04:45 U Epithel Cells (Auto) 0-5 /lpf (0-5) 06/07/22 04:45 Urine Bacteria (Auto) Negative (Negative) 06/07/22 04:45 Nasal Screen MRSA (PCR) Negative (Negative) 06/06/22 22:30 SARS-CoV-2, RNA, NAAT NEGATIVE (NEGATIVE) 06/06/22 20:45 Impressions Soft Tissue Neck X-Ray 06/06/22 20:48 XR soft tissue neck CLINICAL HISTORY: Neck edema. COMPARISON STUDY: None. FINDINGS: The contours of the hypopharynx are within normal limits. The prevertebral soft tissues and epiglottis are normal in thickness. No radiopaque foreign bodies. Moderate degenerative disc disease at C6-C7. The trachea is midline and patent. The lung apices are clear. No radiopaque foreign bodies. IMPRESSION: No significant abnormality within the neck by conventional radiographic technique. ACT 112: Negative or not required by law. Electronically signed by: Chencho Medina M.D. 06/07/2022 8:[address] 06/07/22 16:07 CT head/brain wo con CLINICAL HISTORY: 66 years-old Male with Hypertensive Urgency. Acute headache with hypertension TECHNIQUE: Multiple axial CT images of the head were obtained without contrast. A dose lowering technique was utilized adhering to the principles of ALARA. CT DOSE: 906.34 mGycm COMPARISON: None. FINDINGS: No acute intracranial hemorrhage, midline shift, intracranial mass, hydrocephalus, territorial ischemia or abnormal extra-axial collection. Cerebral vascular calcifications. The calvarium is intact. Mild mucosal thickening of the ethmoid air cells. Hypoplastic frontal sinuses. The mastoid air cells are clear. Hyperdense foci noted within the right parietal scalp near the apex suggestive of calcification versus foreign body. No associated inflammatory changes. IMPRESSION: No acute intracranial abnormality. ACT 112: Negative or not required by law. The above report was generated using voice recognition software. It may contain grammatical, syntax or spelling errors. Electronically signed by: Gallo Alvarez M.D. 06/07/2022 4:52 PM Ordered Studies 06/07/22 16:07 CT head/brain wo con Urgent Hospital Course (1) Angio-edema: Patient is a 66 yr male who presents with angioedema and shortness of breath. Angioedema Unclear etiology --Neck X ray:No significant abnormality within the neck by conventional radiographic technique. --C1 inhibitor function/antigen, tryptase level, and C1q pending -- Received epinephrine, Zyrtec Continue prednisone, famotidine, Benadryl PRN Appreciate [employer] help Tolerated regular diet Advised to follow-up with allergy/Immunology as outpatient Hypertensive urgency Uses natural remedies for blood pressure control as per patient Very reluctant to be started on any antihypertensives Explained the risks and complications involved with uncontrolled blood pressure Monitor BP Added Amlodipine, Losartan--Only took Amlodipine Advised to follow-up with PCP for further recommendations Asthma Continue inhalers as needed DVT Px: SCDs for now CODE STATUS Full Code Total Time Total Time Spent Total Time Spent (In Minutes): 49 minutes Discharge Plan Discharge Items Patient Disposition: Home - Self-Care Reason For Visit: SOB Discharge Diagnosis: Angioedema Hypertensive urgency Activity: Per Instructions section Exercise/Sports: Gradually increase as tolerated Non-emergency contact: Primary Care Provider and Specialist Call non-emergency contact if: you have any medication questions, your symptoms worsen, your pain is concerning for you and you have a fever Follow-up/Referrals: PCP,NO [Primary Care Provider] - Diet: Heart Healthy Addtl Attending Provider Instructions: Follow-up with your primary care physician on 06/10/22 at 9.30 Am as scheduled --- Monitor your blood pressure regularly at home. Discuss with your physician for further adjustment of blood pressure medications as needed. -- Complete prednisone taper course, famotidine as prescribed. Can use Benadryl [id number] as needed for allergic reactions. Prednisone taper course: Take prednisone 20 mg daily for 2 days, and then take 10 mg daily for 3 days and stop --Can use EpiPen for recurrence of Angioedema/Anaphylactic allergic reaction as directed. Please call 911 for further assistance as advised. Seek immediate medical attention if your symptoms reoccur or worsen Please take all medications as instructed on discharge list below. Please call if you have any questions or problems. You can reach a [facility] hospitalist on duty at [facility] 24 hours a day by calling [phone] Pending Studies at Discharge: Yes Studies:: C1 inhibitor function/antigen, tryptase level, and C1q Stand-Alone Forms: My [facility], Smoking Cessation Medications and DC Order Prescriptions: New amlodipine [Norvasc] 5 mg Tablet 5 mg PO QAM Qty: 30 0RF losartan 25 mg Tablet 25 mg PO QAM Qty: 30 0RF famotidine 20 mg Tablet 20 mg PO BID Qty: 10 0RF prednisone 10 mg tablet 10 mg PO UD Qty: 7 0RF Rx Instructions: Take prednisone 20 mg daily for 2 days, and then take 10 mg daily for 3 days and stop epinephrine [EpiPen 2-Jones] 0.3 mg/0.3 mL auto-injector 0.3 mg IM UD PRN (Reason: anaphylaxis) Qty: 2 0RF Rx Instructions: As directed Continued albuterol sulfate 90 mcg/actuation HFA aerosol inhaler 2 puff inhalation DIRECTED PRN (Reason: Shortness Of Breath) Multiple Vitamins Suppliments 1 dose PO DAILY Discharge Orders: Discharge Order (Routine); Ordered 06/08/22 Ordered By: Miguel Moore/Other Patient Handouts: Prediabetes, 5 Steps for Eating Healthier, ED Angioedema Admission Data Admit Date/Time: 06/06/22 21:45 Attending Provider: Miguel Gonsalez Admit Provider: Rod Juan Primary Care Provider: PCP,NO Other Providers: Rod Juan ; Alex Stokes
--- NOTE | 2022-06-08 15:59 | Billing Data ---
Date of Service June 07, 2022 Coding Level of Care Code 31971 Subseq Obs Care Lvl 2
[2022-06-16 18:32] LABS: C1 Esterase Inhib Functional >100 %; C1 Esterase Inhibitor 24 mg/dL (21-39); Complement C1q 6.3 mg/dL (5.0-8.6)
== END 2022-06-08 16:00 | disposition home or self-care (01) ==
LOC: ED 18:34 → INTOOBSV 21:45 → SUATTDRO 21:45 → 1E 21:45 → 2W 06-07 15:04